=== PATIENT | female | born 2000 | race Caucasian/White ===

== ENCOUNTER 2018-06-07 15:09 | Inpatient (IN) | payer MEDICAID ==
[~2018-06-07] VITALS: Ht 157.5 cm; Wt 93.0 kg
[2018-06-07] MEDS ORDERED: PREN-546 PO (15:45)
[2018-06-07] MEDS ORDERED: OXYTOCIN 10 UNITS/ML VIAL IM PRN (15:45)
[2018-06-07] MEDS ORDERED: OXYTOCIN 20 UNITS in LACTATED RINGERS 1,000 ML IV SCH ×2 (15:45→19:58)
[2018-06-07] MEDS ORDERED: MISOPROSTOL 25 MCG TAB VG PRN (15:45)
[2018-06-07 16:24] LABS: BASOPHILS % (AUTO) 0.3 % (0.0-2.0); EOSINOPHILS % (AUTO) 0.5 % (0.0-4.0); HEMATOCRIT 33.8 % (36-48); HEMOGLOBIN 11.2 g/dL (12.0-16.0); LYMPHOCYTES % (AUTO) 26.6 % (20.5-51.1); MEAN CORPUSCULAR HEMOGLOBIN 30 pg (27-31); MEAN CORPUSCULAR HGB CONC 33 g/dL (33-37); MEAN CORPUSCULAR VOLUME 88.8 fL (80-94); MONOCYTES # (AUTO) 0.5 K/uL (0.8-1.0); MONOCYTES % (AUTO) 6.9 % (1.7-9.3); NEUTROPHILS % (AUTO) 65.7 % (42.2-75.2); PLATELET COUNT (AUTO) 236 K/uL (140-450); RED CELL DISTRIBUTION WIDTH 16.9 % (11.6-13.7); WHITE BLOOD COUNT (AUTO) 7.7 K/uL (4.5-11.0)
[2018-06-07 16:26] LABS: APPEARANCE,URINE HAZY (CLEAR); BILIRUBIN,URINE 1+ (NEGATIVE); BLOOD, URINE NEGATIVE (NEGATIVE); LEUKOCYTE ESTERASE ,URINE TRACE (NEGATIVE); NITRITE, URINE NEGATIVE (NEGATIVE); UGLUCOSE NEGATIVE (NEGATIVE)
[2018-06-07 16:40] LABS: COLOR,URINE AMBER (YELLOW)
[2018-06-07 16:41] LABS: RBC,URINE NONE SEEN /HPF (0-5)
[2018-06-07] MEDS: LACTATED RINGERS 1,000 ML IV SCH (19:03)
[2018-06-07] MEDS ORDERED: MISOPROSTOL 25 MCG TAB VG ONE (20:00)
[2018-06-07] MEDS ORDERED: MISOPROSTOL 25 MCG TAB ONE (20:03)
[2018-06-08] MEDS ORDERED: PROMETHAZINE 25 MG/ML VIAL ONE ×2 (01:37→10:56)
[2018-06-08] MEDS ORDERED: NALBUPHINE 10 MG/ML AMP ONE ×3 (01:37→14:38)
[2018-06-08] MEDS: NALBUPHINE 10 MG/ML AMP IVP PRN ×2 (01:41→10:56)
[2018-06-08] MEDS ORDERED: PROMETHAZINE 25 MG/ML VIAL IVP PRN (01:45)
[2018-06-08] MEDS ORDERED: OXYTOCIN 20 UNITS/LR PREMIX 1,000 ML IV ONE (05:58)
--- NOTE | 2018-06-08 06:38 | NUR ---
PATIENT HAS BEEN SCREENED AND CATEGORIZED LOW NUTRITION RISK. PATIENT WILL BE SEEN WITHIN 7 DAYS OF ADMISSION. 06/14/18 VILLA MITCHELL MS, RDN
[2018-06-08] MEDS: LACTATED RINGERS 1,000 ML IV SCH (09:10)
[2018-06-08] MEDS ORDERED: OXYTOCIN 10 UNITS/ML VIAL ONE (10:30)
[2018-06-08] MEDS ORDERED: LIDOCAINE 2% 1000 MG/50 ML VIAL INJ ONE (10:31)
[2018-06-08] MEDS ORDERED: METHYLERGONOVINE 0.2 MG/ML AMP ONE (14:17)
[2018-06-08] MEDS ORDERED: OXYTOCIN 20 UNITS in LACTATED RINGERS 1,000 ML IV SCH (14:42)
[2018-06-08] MEDS ORDERED: MEASLES, MUMPS, AND RUBELLA 1 VIAL SQVAC PRN (14:45)
[2018-06-08] MEDS: IBUPROFEN 600 MG TAB PO PRN ×2 (16:59→21:19)
[2018-06-09] MEDS: ACETAMINOPHEN 325 MG TAB PO PRN ×2 (02:53→23:20)
[2018-06-09 09:27] LABS: EOSINOPHILS % (AUTO) 0.6 % (0.0-4.0); HEMOGLOBIN 10.3 g/dL (12.0-16.0); LYMPHOCYTES # (AUTO) 1.8 K/uL (2.5-16.5); MEAN CORPUSCULAR HEMOGLOBIN 29 pg (27-31); MEAN CORPUSCULAR HGB CONC 32 g/dL (33-37); MEAN CORPUSCULAR VOLUME 88.5 fL (80-94); MONOCYTES % (AUTO) 6.1 % (1.7-9.3); NEUTROPHILS % (AUTO) 67.3 % (42.2-75.2); PLATELET COUNT (AUTO) 226 K/uL (140-450); RED BLOOD CELL COUNT(AUTO) 3.62 MIL/uL (4.20-5.40); RED CELL DISTRIBUTION WIDTH 16.5 % (11.6-13.7); WHITE BLOOD COUNT (AUTO) 7.3 K/uL (4.5-11.0)
[2018-06-09 09:28] LABS: BASOPHILS # (AUTO) 0.1 K/uL (0.00-0.22); MONOCYTES # (AUTO) 0.4 K/uL (0.8-1.0)
[2018-06-10] MEDS ORDERED: FERR325E14 PO (19:46)
[2018-06-10] MEDS ORDERED: ACET-9800 PO (19:47)
== END 2018-06-10 20:05 | disposition home or self-care (01) | DRG 560 ==
LOC: MLD 15:09 → MFCC 06-08 17:45
PROVIDERS: ADMIT Obstetrics & Gynecology; ATTEND Obstetrics & Gynecology
PROC: 10E0XZZ Delivery of Products of Conception, External Approach (ICD-10-PCS; principal; 2018-06-08)
PROC: 10907ZC Drainage of Amniotic Fluid, Therapeutic from Products of Conception, Via Natural or Artificial Opening (ICD-10-PCS; 2018-06-08)
PROC: 3E033VJ Introduction of Other Hormone into Peripheral Vein, Percutaneous Approach (ICD-10-PCS; 2018-06-08)
DX: O48.0 Post-term pregnancy (principal); Z37.0 Single live birth; Z3A.40 40 weeks gestation of pregnancy
CPT/HCPCS: 36415; 51702; 59070; 59200; 59409; 76805; 81001; 85025; 86592; 86886; 86900; 86901; 87086; J2001; J2210; J2300; J2550; J2590; J7120; Q0092